=== PATIENT | female | born 1970 | race Asian ===

== ENCOUNTER 2020-09-15 16:51 | Emergency (ER) | payer SELFPAY ==
[2020-09-15 17:33] VITALS: TEMP 98.9; BMI 21.7
[2020-09-15 19:19] LABS: BASO % 0.5 % (0-2.0); EOS % 1.3 % (0-4.5); HEMATOCRIT 23.9 % (32.4-45.2); HEMOGLOBIN 7.1 GM/dL (10.7-15.3); LYMPH % 43.7 % (8-40); MCHC 29.8 g/dl (32.0-36.0); MEAN CELL VOLUME 56.5 fl (80-96); MEAN PLT VOLUME 8.3 fl (7.5-11.1); MONO % 7.9 % (3.8-10.2); NEUT % 46.6 % (42.8-82.8); PLATELET COUNT 455 K/MM3 (134-434); RBC 4.23 M/mm3 (3.60-5.2); RDW 21.7 % (11.6-15.6); WHITE BLOOD COUNT 6.2 K/mm3 (4.0-10.0)
[2020-09-15 19:20] LABS: MCH 16.8 pg (25.7-33.7)
[2020-09-15 19:28] LABS: POTASSIUM 3.8 mmol/L (3.5-5.1)
[2020-09-15 19:32] LABS: CALCIUM 9.2 mg/dL (8.5-10.1)
[2020-09-15 19:33] LABS: ALBUMIN 4.1 g/dl (3.4-5.0)
[2020-09-15 19:36] LABS: CREATININE 0.6 mg/dL (0.55-1.3)
[2020-09-15 19:37] LABS: BILIRUBIN,TOTAL 0.6 mg/dL (0.2-1); TOT PROT 8.2 g/dl (6.4-8.2)
[2020-09-15] MEDS ORDERED: IRON SUCROSE INJECTION 200 MG in SODIUM CHLORIDE 100 ML IVPB ONE (20:00)
[2020-09-15 20:14] LABS: ANISOCYTOSIS 3+; MACROCYTOSIS 0; PLATELET ESTIMATE NORMAL
[2020-09-15 22:33] VITALS: BP 130/87; PULSE 89
== END 2020-09-15 22:33 | disposition home or self-care (01) ==
LOC: JER 16:51
PROC: 3E033GC Introduction of Other Therapeutic Substance into Peripheral Vein, Percutaneous Approach (ICD-10-PCS; principal; 2020-09-15)
DX: D50.9 Iron deficiency anemia, unspecified (principal)
CPT/HCPCS: 36415; 80053; 82272; 82728; 83550; 83615; 84703; 85025; 85045; 86850; 86900; 86901; 93005; 93010; 99284-25; J1756